=== PATIENT | male | born 1970 | race Two or more races ===

== ENCOUNTER 2020-01-18 08:28 | Emergency (ER) | payer SELFPAY ==
[~2020-01-18] VITALS: Ht 152.4 cm; Wt 68.0 kg
[2020-01-18] MEDS ORDERED: LIDOCAINE 1% INJ 50 ML MDV IJ ONE ×2 (09:03→10:00)
[2020-01-18] MEDS ORDERED: TDAP [DIPH/PERTUSSIS/TET] 0.5 ML VIAL IM ONE ×2 (09:56→10:00)
[2020-01-18] MEDS ORDERED: BACITRACIN ZINC OINT PACKET 1 EA PACKET TP ONE (10:00)
--- NOTE | 2020-01-18 11:00 | NUR ---
Facial Lacration repaired by Dr Norwood Sutures intact NO active Bleeding. Patient discharged to home in stable condition. Written and verbal after care instructions given. Patient verbalizes understanding of instruction.
[2020-01-18 11:16] VITALS: BP 125/79
== END 2020-01-18 11:17 | disposition home or self-care (01) ==
LOC: ER 08:29
DX: S01.511A Laceration without foreign body of lip, initial encounter (principal); E11.9 Type 2 diabetes mellitus without complications; W26.8XXA Contact with other sharp object(s), not elsewhere classified, initial encounter; Y93.89 Activity, other specified; Y92.89 Other specified places as the place of occurrence of the external cause; Y99.8 Other external cause status
CPT/HCPCS: 12013; 90471; 90715; 99283; A6403 ×2; J3490